=== PATIENT | female | born 1975 | race Caucasian/White ===

== ENCOUNTER 2022-02-25 20:42 | Emergency (ER) | payer OTHER | END 2022-02-25 22:43 | disposition home or self-care (01) | LOC: JD.ED 20:42 | DX: N39.0 Urinary tract infection, site not specified (principal); Z88.2 Allergy status to sulfonamides; Z79.899 Other long term (current) drug therapy; Z86.16 Personal history of COVID-19; Z90.49 Acquired absence of other specified parts of digestive tract | CPT/HCPCS: 81001; 87086; 87088; 87186; 99283 ==